=== PATIENT | female | born 1995 | race African-American/Black ===

== ENCOUNTER 2017-09-18 22:32 | Emergency (ER) | payer MEDICAID, OTHER | END 2017-09-18 23:44 | disposition home or self-care (01) | LOC: SCSER 22:32 | DX: B34.9 Viral infection, unspecified (principal); K21.9 Gastro-esophageal reflux disease without esophagitis; F43.10 Post-traumatic stress disorder, unspecified; F32.9 Major depressive disorder, single episode, unspecified | CPT/HCPCS: 87081; 87430; 87804; 99283 ==

== ENCOUNTER 2018-06-25 18:08 | Emergency (ER) | payer MEDICAID, OTHER ==
[2018-06-25 18:56] LABS: Band 1 % (5-11); Eosinophils 2 % (0-10); Hemoglobin 13.4 g/dL (12.0-16.0); Lymphocytes 32 % (21-51); MDiff Complete? YES; Mean Corpuscular Hemoglobin 30.5 pg (27.0-31.0); Mean Corpuscular Volume 95.1 fL (78.0-98.0); Mean Platelet Volume 7.9 fL (7.4-10.4); Monocytes 6 % (0-10); Neutrophil 59 % (42-75); PLT Morphology Comment Appears Adequate; Platelet Count 220 thou/uL (130-400); Red Blood Cell (RBC) Count 4.38 mill/uL (4.20-5.40)
[2018-06-25 19:02] LABS: ALT (SGPT) 17 U/L (8-55); AST (SGOT) 20 U/L (5-34); Albumin 4.4 g/dL (3.5-5.0); Alkaline Phosphatase 54 U/L (40-150); Anion Gap 12 mmol/L (10-20); BUN (Urea Nitrogen) 19 mg/dL (7.0-18.7); Bilirubin, Total 0.3 mg/dL (0.2-1.2); CK (CPK) 793 U/L (29-168); Calc. Creatinine Clearance 0 mL/min (70-130); Calcium 9.9 mg/dL (7.8-10.44); Carbon Dioxide 29 mmol/L (22-29); Chloride 102 mmol/L (98-107); Estimated GFR-MDRD Greater than 90; Globulin 2.8 g/dL (2.4-3.5); Glucose 87 mg/dL (70-105); Protein, Total 7.2 g/dL (6.0-8.3); Sodium 139 mmol/L (136-145)
[2018-06-25 19:03] LABS: CKMB 3.1 ng/mL (0-6.6); Troponin I Less than 0.010 ng/mL (< 0.028)
--- NOTE | 2018-06-25 19:13 | RAD ---
RIGHT SHOULDER THREE VIEWS: 06/25/18 HISTORY: Right shoulder pain. FINDINGS/IMPRESSION: No fracture or dislocation or bony destruction is identified. POS: [id number]
== END 2018-06-25 19:30 | disposition home or self-care (01) ==
LOC: SCSER 18:08
DX: M25.511 Pain in right shoulder (principal)
CPT/HCPCS: 36415; 80053; 82553; 84484; 85025; 85379; 93005

== ENCOUNTER 2018-06-27 12:50 | Emergency (ER) | payer MEDICAID, OTHER | END 2018-06-27 13:14 | disposition home or self-care (01) | LOC: ERS 12:50 | DX: T78.40XA Allergy, unspecified, initial encounter (principal); K21.9 Gastro-esophageal reflux disease without esophagitis; F32.9 Major depressive disorder, single episode, unspecified; F43.10 Post-traumatic stress disorder, unspecified | CPT/HCPCS: 99283 ==